=== PATIENT | male | born 1955 | race Caucasian/White ===

== ENCOUNTER 2023-12-24 06:42 | Day surgery (SDC) | payer MEDICARE, BC ==
[2023-12-24] MEDS: Lactated Ringers 1,000 ML IV SCH (06:28)
[2023-12-24] MEDS: Cyclopentolat/Tropic/Phenyleph 1 ML Ophth Drop SDV EYERT SCH (06:28)
[2023-12-24] MEDS ORDERED: Midazolam 1 MG/ML 2 ML SDV ONE (06:55)
[2023-12-24] MEDS: Brimonidine 0.2% Ophth Soln 5 ML Bottle EYERT ONE (07:02)
[2023-12-24] MEDS: Tetracaine HCl/PF 0.5% 4 ML Bottle EYERT ONE (07:02)
[2023-12-24] MEDS: Lidocaine 1% 5 ML VIAL INJECT ONE (07:02)
[2023-12-24] MEDS: Povidone-Iodine 5% Sterile Ophth Soln 30 ML Bottle EYERT ONE (07:02)
[2023-12-24] MEDS: acetaZOLAMIDE 500 MG Cap.ER PO ONE (08:29)
[2023-12-24 09:30] VITALS: PULSE 73
[2023-12-24 09:31] VITALS: BP 106/60
== END 2023-12-24 08:55 | disposition home or self-care (01) ==
LOC: CC.SDS 06:42
PROVIDERS: ATTEND Ophthalmology
DX: H25.811 Combined forms of age-related cataract, right eye (principal); I10 Essential (primary) hypertension; Z79.899 Other long term (current) drug therapy
CPT/HCPCS: A9270-GY; J2250; J3490; J7120

== ENCOUNTER 2024-01-14 07:06 | Day surgery (SDC) | payer MEDICARE, BC ==
[2024-01-14] MEDS: Lactated Ringers 1,000 ML IV SCH (07:27)
[2024-01-14] MEDS: Cyclopentolat/Tropic/Phenyleph 1 ML Ophth Drop SDV EYEBOTH SCH (07:27)
[2024-01-14] MEDS ORDERED: Midazolam 1 MG/ML 2 ML SDV ONE (07:56)
[2024-01-14] MEDS: MOXIFLOXACIN PF in BSS 1 MG/ML VIAL ICORN ONE (08:13)
[2024-01-14] MEDS: Povidone-Iodine 5% Sterile Ophth Soln 30 ML Bottle EYELF ONE (08:13)
[2024-01-14] MEDS: Tetracaine HCl/PF 0.5% 4 ML Bottle EYELF ONE (08:13)
[2024-01-14] MEDS: Brimonidine 0.2% Ophth Soln 5 ML Bottle EYELF ONE (08:13)
[2024-01-14] MEDS: Lidocaine 1% 5 ML VIAL IARTIC ONE (08:13)
[2024-01-14] MEDS: Lidocaine 1% 5 ML VIAL INJECT ONE (08:13)
[2024-01-14] MEDS: acetaZOLAMIDE 500 MG Cap.ER PO ONE (08:49)
[2024-01-14 09:09] VITALS: BP 126/75; PULSE 64
== END 2024-01-14 09:12 | disposition home or self-care (01) ==
LOC: CC.SDS 07:06
PROVIDERS: ATTEND Ophthalmology
DX: H26.9 Unspecified cataract (principal); I10 Essential (primary) hypertension; N40.0 Benign prostatic hyperplasia without lower urinary tract symptoms; Z79.899 Other long term (current) drug therapy
CPT/HCPCS: A9270-GY; J2250; J3490; J7120